=== PATIENT | male | born 1955 | race Hispanic/Latino ===

== ENCOUNTER 2020-11-27 11:37 | Day surgery (SDC) | payer MEDICARE ==
[~2020-11-27 11:37] MED LIST: ACETAMINOPHEN 500 MG TAB PO SCH; LACTATED RINGERS 1,000 ML IV SCH; MIDAZOLAM 2 MG/2 ML INJ IV NR
[2020-11-27] MEDS ORDERED: ONDANSETRON 4 MG/2 ML INJ IV PRN (11:57)
[2020-11-27] MEDS ORDERED: HYDROmorphone 1 MG/1 ML INJ IV PRN (11:57)
[2020-11-27] MEDS ORDERED: HYDROcodone/ACETAMINOPHEN 5-325 MG TAB PO PRN (11:57)
--- NOTE | 2020-11-27 11:57 | Anesthesia Day of Surgery ---
Anesthesia Day of Surgery - Day of Surgery Patient Examined: Yes Patient H&P Reviewed: Yes Patient is NPO: Yes
--- NOTE | 2020-11-27 11:57 | Anesthesia Consultation ---
Anesthesia Consult and Med Hx Date of service: 11/27/20 - Airway Anesthetic Teeth Evaluation: Edentulous ROM Head & Neck: Adequate Mental/Hyoid Distance: Adequate Mallampati Class: Class I Intubation Access Assessment: Good - Pre-Operative Health Status ASA Pre-Surgery Classification: ASA2 Proposed Anesthetic Plan: General - Pulmonary Hx Smoking: Yes (quit 3 yrs) Hx Respiratory Symptoms: No Hx Sleep Apnea: Yes (+ CPAP) - Cardiovascular System Hx Hypertension: Yes Hx Heart Attack/AMI: No - Central Nervous System CVA: No - Endocrine Hx Renal Disease: No Hx Liver Disease: No Hx Insulin Dependent Diabetes: No Hx Non-Insulin Dependent Diabetes: No Hx Thyroid Disease: No - Other Systems Hx Obesity: Yes (BMI 31) - Additional Comments Anesthesia Medical History Comments: No hx anesthetic complications.
[2020-11-27] MEDS ORDERED: ceFAZolin/Water 2 GM/20 ML 2 GM/20 ML SYRINGE IV ONE (12:54)
[2020-11-27] MEDS ORDERED: ceFAZolin/Water 2 GM/20 ML 2 GM/20 ML SYRINGE IV NR (13:00)
--- NOTE | 2020-11-27 13:50 | Post Operative Note ---
Pre-op diagnosis: r spermatocele Post-op diagnosis: same Findings: as above Procedure: r scrotal exp spermatocelectomy partial epidiymectomy Anesthesia: GETA Surgeon: COLLINS RETANA Estimated blood loss: minimal Pathology: list (sac) Specimen disposition: to lab Condition: stable Disposition: PACU
[2020-11-27] MEDS ORDERED: propofoL 200 MG/20 ML VIAL IV ONE ×2 (13:51→14:24)
[2020-11-27] MEDS ORDERED: LIDOCAINE MPF (2%) 20 MG/1 ML VIAL 5 ML ONE (13:51)
[2020-11-27] MEDS ORDERED: HYDROmorphone 1 MG/1 ML INJ ONE (13:51)
--- NOTE | 2020-11-27 13:52 | Discharge Summary ---
Short Stay Discharge Plan Activity: other (no straining) Weight Bearing Status: Full Weight Bearing Diet: low fat, low cholesterol, low salt Wound: open to air Special Instructions: other (ice in rr and 24 hrs) Follow up with: ESTHER CHAIDEZ MD [Primary Care Provider] - 7 Days COLLINS RETANA MD [Staff Physician] - 7 Days
[2020-11-27] MEDS ORDERED: LIDOCAINE (1%) 10 MG/1 ML VIAL 20 ML MDV ONE (13:53)
[2020-11-27] MEDS ORDERED: BUPIVACAINE/PF (0.25%) 2.5 MG/ML 30 ML VIAL INFILTRATI ONE (13:54)
[2020-11-27] MEDS ORDERED: SODIUM CHLORIDE 0.9% IRR 1,000 ML BOTTLE IR ONE (14:22)
[2020-11-27] MEDS ORDERED: dexAMETHasone 20 MG/5 ML VIAL ONE (15:10)
[2020-11-27] MEDS ORDERED: ONDANSETRON 4 MG/2 ML INJ ONE (15:10)
--- NOTE | 2020-11-27 16:00 | Operative Report ---
DATE OF SURGERY: 11/27/2020 PREOPERATIVE DIAGNOSES: Large right scrotal mass with very dilated superficial veins. POSTOPERATIVE DIAGNOSES: Large right scrotal mass with very dilated superficial veins. PROCEDURE PERFORMED: Right scrotal exploration, small hydrocele evacuation and treatment and very large spermatocele removal with partial epididymectomy. SURGEON: Shawn Otero MD ANESTHESIA: General. FINDINGS: This is a gentleman with a large scrotum and a large mass in the right hemiscrotum. He had very dilated veins. He now presents for treatment. DESCRIPTION OF PROCEDURE: The patient was brought to the operating room and placed on the operating table. Following induction of anesthesia, placed in supine position, prepped and draped in usual sterile fashion. An oblique incision was made over the right hemiscrotum, carried down to the tunica. The veins were quite prominent in the superficial fascia, which were avoided as best as possible. The mass was noted once we opened the tunica vaginalis. The mass was multiloculated with some vessels and the epididymis wrapped around it. We dissected it off about 80% until we just had it attached to the head of the testicle and the epididymis. We tried to dissect most of the epididymis off it, but it was too adherent and too wrapped around it. The head of the epididymis was taken with the specimen. Specimen was opened and it was cauterized off the top of the testicle. The patient tolerated the procedure well. No significant bleeding. Estimated blood loss less than 3 mL. The epididymis was suture ligated. Any small vessels were tied or cauterized. Wound was copiously irrigated. Half-inch Williams was placed in the dependent portion of the scrotum and superficial fascia was closed with 3-0 chromic, skin with 3-0 chromic, was brought to recovery room, minimal blood loss, in stable condition. TID: [id number] RECEIPT: [id number] TELLO/FINA
[2020-11-27 16:42] VITALS: BP 141/93
== END 2020-11-27 17:15 | disposition home or self-care (01) ==
LOC: OR 11:37
PROVIDERS: ATTEND Urology
DX: N43.40 Spermatocele of epididymis, unspecified (principal); I10 Essential (primary) hypertension; E66.9 Obesity, unspecified; G47.30 Sleep apnea, unspecified; Z87.891 Personal history of nicotine dependence; Z79.899 Other long term (current) drug therapy; Z98.890 Other specified postprocedural states; Z20.822 Contact with and (suspected) exposure to COVID-19
CPT/HCPCS: 54840; 88304; J0690; J1100; J1170; J2250; J2405; J2704; J7120; U0003